=== PATIENT | female | born 1960 | race African-American/Black ===

== ENCOUNTER → 2016-03-19 | Outpatient (CLI) | payer OTHER, BC | LOC: MC.RAD 14:53 | DX: Z12.31 Encounter for screening mammogram for malignant neoplasm of breast (principal) ==

== ENCOUNTER 2016-05-09 15:00 | Outpatient (RCR) | payer OTHER, BC | END 2016-05-15 10:31 | disposition home or self-care (01) | LOC: MKS.ESL.PT 15:00 | DX: M25.561 Pain in right knee (principal) | CPT/HCPCS: G8978-GP; G8979-GP; G8980-GP ==

== ENCOUNTER → 2017-05-01 | Outpatient (CLI) | payer OTHER | LOC: MC.RAD 04-03 14:20 | DX: Z12.31 Encounter for screening mammogram for malignant neoplasm of breast (principal) ==

== ENCOUNTER → 2018-06-08 | Outpatient (CLI) | payer OTHER | LOC: MC.RAD 16:39 | DX: Z12.31 Encounter for screening mammogram for malignant neoplasm of breast (principal) ==

== ENCOUNTER 2018-11-21 08:30 | Inpatient (IN) | payer OTHER ==
[~2018-11-21] VITALS: Ht 167.6 cm; Wt 90.1 kg
[2018-11-21 09:27] LABS: BASO % 0.3 % (0.0-2.0); EOS % 0.3 % (0-4.0); GRAN % 75.4 % (42.2-75.2); HEMATOCRIT 44.1 % (37.0-47.0); HEMOGLOBIN 14.7 g/dl (12.5-16.0); LYMPH # 1.8 (1.2-3.4); MEAN CELL VOLUME 92 fl (80.0-100.0); MEAN CORPUSCULAR HEMOGLOBIN 31 pg (27.0-31.0); MEAN CORPUSCULAR HGB CONC 33 g/dl (33.0-37.0); MEAN PLATELET VOLUME 9.6 fl (7.4-10.4); MONO # 0.5 (0.1-0.6); MONO % 4.8 % (1.7-9.3); PLATELET COUNT 267 K/mm3 (130-400); REDCELL DISTRIBUTION WIDTH-CV 11.9 % (11.5-14.5)
[2018-11-21 09:36] LABS: ALANINE AMINOTRANSFERASE < 6 U/L (9-52); ALBUMIN 4.6 gm/dL (3.5-5.0); ALKALINE PHOSPHATASE 115 U/L (50-136); ANION GAP 12 mmol/L (7-16); AST,SGOT 22 U/L (15-37); BILIRUBIN,TOTAL 0.5 mg/dL (0.0-1.0); BLOOD UREA NITROGEN 13 mg/dL (7-17); C-REACTIVE PROTEIN 1.1 mg/dL (0.0-0.9); CALCIUM 10.1 mg/dL (8.4-10.2); CARBON DIOXIDE 25 mmol/L (22-30); CHLORIDE 105 mmol/L (98-107); CREATININE, serum 0.69 (0.52-1.25); GLUCOSE 148 mg/dL (74-106); LIPASE 762 U/L (23-300); POTASSIUM 4.1 mmol/L (3.4-5.0); SODIUM 142 mmol/L (137-145); TOTAL PROTEIN 8.5 gm/dL (6.4-8.2)
[2018-11-21 10:16] LABS: COLLECTION METHOD CLEAN CATCH
[2018-11-21 10:27] LABS: MUCOUS Present /lpf; PH 7 (5-8); SQUAMOUS EPITHELIAL 0-2 /hpf; URINE APPEARANCE Clear; URINE BACTERIA None Seen /hpf; URINE BILIRUBIN Negative (NEGATIVE); URINE BLOOD Negative (NEGATIVE); URINE COLOR Yellow; URINE GLUCOSE Negative (NEGATIVE); URINE KETONE Negative (NEGATIVE); URINE LEUKOCYTE ESTERASE Negative (NEGATIVE); URINE NITRATE Negative (NEGATIVE); URINE PROTEIN(semi-quant) Negative (NEGATIVE); URINE RBC 0-2 /hpf; URINE UROBILINOGEN Negative (NEGATIVE)
--- NOTE | 2018-11-21 12:00 | NUR ---
Admitted from ED with SBO. NPO. Denies abdominal pain or nausea. IV fluids infusing. Family at bedside.
[2018-11-21 12:32] VITALS: BP 174/88; PULSE 57; TEMP 98.1
[2018-11-21 13:10] VITALS: BP 152/78; PULSE 55
[2018-11-21 16:00] VITALS: BP 171/91; PULSE 59; TEMP 98.2
--- NOTE | 2018-11-21 17:30 | NUR ---
Medicated with Dilaudid for c/o abdominal pain returning. Stated pain relieved after med. Has ambulated in halls with standby assist.
[2018-11-21 19:48] VITALS: BP 178/79; PULSE 50; TEMP 98.4
--- NOTE | 2018-11-21 22:41 | NUR ---
Pt assessment completed. Patient does state she is in some pain but does not want any pain meds at this time. Patient ambulated in [place] with daughter and tolerated well. Patient has LR running in right hand with no issues. Call light within reach, will continue to monitor
[2018-11-21 23:55] VITALS: BP 143/77; PULSE 50; TEMP 98.7
[2018-11-22 04:00] VITALS: BP 147/71; PULSE 50; TEMP 98.7
--- NOTE | 2018-11-22 04:56 | NUR ---
Patient doing well, sleeping in room. Call light within reach, will continue to monitor
[2018-11-22 06:06] LABS: BASO % 0.3 % (0.0-2.0); EOS # 0.2 (0.0-0.7); EOS % 2.6 % (0-4.0); GRAN # 4.1 (1.4-6.5); GRAN % 58.7 % (42.2-75.2); HEMATOCRIT 38.1 % (37.0-47.0); LYMPH # 2.2 (1.2-3.4); LYMPH % 31.9 % (20.0-51.0); MEAN CELL VOLUME 95 fl (80.0-100.0); MEAN CORPUSCULAR HEMOGLOBIN 31 pg (27.0-31.0); MEAN CORPUSCULAR HGB CONC 33 g/dl (33.0-37.0); MEAN PLATELET VOLUME 9.6 fl (7.4-10.4); MONO # 0.5 (0.1-0.6); MONO % 6.4 % (1.7-9.3); PLATELET COUNT 217 K/mm3 (130-400); RED BLOOD COUNT 4.02 M/mm3 (4.10-5.30); REDCELL DISTRIBUTION WIDTH-CV 11.9 % (11.5-14.5)
[2018-11-22 06:07] LABS: HEMOGLOBIN 12.6 g/dl (12.5-16.0)
[2018-11-22 06:22] LABS: ALBUMIN 3.8 gm/dL (3.5-5.0); BILIRUBIN,TOTAL 0.8 mg/dL (0.0-1.0); CALCIUM 9.1 mg/dL (8.4-10.2); CREATININE, serum 0.7 (0.52-1.25); POTASSIUM 3.6 mmol/L (3.4-5.0); TOTAL PROTEIN 6.9 gm/dL (6.4-8.2)
[2018-11-22 09:30] VITALS: BP 156/69; PULSE 49; TEMP 97.9
--- NOTE | 2018-11-22 10:40 | NUR ---
DR.WOLFE PLUNKETT
[2018-11-22 11:34] VITALS: BP 135/82; PULSE 50; TEMP 98.2
[2018-11-22 15:59] VITALS: BP 137/79; PULSE 51; TEMP 97.9
--- NOTE | 2018-11-22 17:05 | NUR ---
PATIENT CALLED OUT AND REPORTS SHE PASSED FLATUS FOR THE FIRST TIME.
[2018-11-22 19:32] VITALS: BP 141/77; PULSE 53; TEMP 99.3
[2018-11-23 01:24] VITALS: BP 159/76; PULSE 54; TEMP 98.1
--- NOTE | 2018-11-23 01:40 | NUR ---
PATIENT DOING WELL TONIGHT. REPORTS SHE HAS NOT PASSED ANY MORE FLATUS SINCE DAY SHIFT. BOWEL SOUNDS HYPOACTIVE. DENIES PAIN OR NEED FOR PAIN MEDICATION. WALKED A FEW LAPS AROUND UNIT BEFORE BED. NO FURTHER NEEDS AT THIS TIME. WILL CONTINUE TO MONITOR.
[2018-11-23 04:33] VITALS: BP 142/62; PULSE 63; TEMP 98.7
[2018-11-23 06:12] LABS: BASO % 0.5 % (0.0-2.0); EOS # 0.2 (0.0-0.7); EOS % 2.3 % (0-4.0); GRAN # 3.8 (1.4-6.5); GRAN % 58.1 % (42.2-75.2); HEMATOCRIT 39.1 % (37.0-47.0); LYMPH # 2.1 (1.2-3.4); LYMPH % 31.5 % (20.0-51.0); MEAN CELL VOLUME 94 fl (80.0-100.0); MEAN CORPUSCULAR HEMOGLOBIN 31 pg (27.0-31.0); MEAN CORPUSCULAR HGB CONC 33 g/dl (33.0-37.0); MEAN PLATELET VOLUME 9.8 fl (7.4-10.4); MONO # 0.5 (0.1-0.6); MONO % 7.4 % (1.7-9.3); PLATELET COUNT 218 K/mm3 (130-400); RED BLOOD COUNT 4.18 M/mm3 (4.10-5.30); REDCELL DISTRIBUTION WIDTH-CV 11.7 % (11.5-14.5)
[2018-11-23 06:16] LABS: INR 1.1 (0.8-3.0)
[2018-11-23 06:24] LABS: BILIRUBIN,TOTAL 0.9 mg/dL (0.0-1.0); CALCIUM 9.4 mg/dL (8.4-10.2); CREATININE, serum 0.75 (0.52-1.25); POTASSIUM 3.6 mmol/L (3.4-5.0); TOTAL PROTEIN 7.3 gm/dL (6.4-8.2)
[2018-11-23 09:00] VITALS: BP 163/84; PULSE 53; TEMP 98.2
--- NOTE | 2018-11-23 09:04 | NUR ---
Initial visit; Patient thanked Associate Professor Of Communication for stopping and offering God's blessings. Patient has notified her Cargo Service Supervisor of her hospitalization.
--- NOTE | 2018-11-23 10:00 | NUR ---
Patient alert and oriented, answers questions appropriately. See assessment. Abdomen soft, non tender, non distended. Bowel sounds active x4 quads. +Flatus. No c/o at this time.
[2018-11-23 12:32] VITALS: BP 148/76; PULSE 59; TEMP 98.7
--- NOTE | 2018-11-23 16:05 | NUR ---
KRISTYN met with the patient to discuss a discharge plan. The patient lives in [place] with her children. The patient does not use DME and reports independence with ADLs. The patient receives medical care at the [facility] and receives medications via mail from the [place] and [facility], as needed. The patient does not have advanced directives in the EMR but has them completed and designate her daughter Ebony. The patient plans to return home upon discharge with on of her daughters providing transportation. There are no additional needs at this time.
[2018-11-23 17:33] VITALS: BP 137/79; PULSE 58; TEMP 98.5
[2018-11-23 20:00] VITALS: BP 137/72; PULSE 69; TEMP 98.3
[2018-11-24] VITALS: BP 136/73; PULSE 59; TEMP 98.5
--- NOTE | 2018-11-24 01:47 | NUR ---
PATIENT DOING WELL TONIGHT. DENIES PAIN. SEE ASSESMENT. STATES SHE HAS NOT PASSED ANY MORE GAS SINCE SHIFT CHANGE. ABDOMEN SOFT AND NONTENDER, BOWEL SOUNDS HYPOACTIVE. X4 LAP SITES CD&I. PATIENT TOLERATING LOW FIBER DIET SO FAR. HAS NOT PASSED BM THIS SHIFT. NO FURTHER NEEDS AT THIS TIME.
[2018-11-24 04:00] VITALS: BP 135/76; PULSE 61; TEMP 98.1
[2018-11-24 07:11] VITALS: BP 138/68; PULSE 62; TEMP 98.6
--- NOTE | 2018-11-24 09:30 | NUR ---
Patient alert and oriented, answers questions appropriately. See assessment. Abdomen soft, non tender, non distended. Bowel sounds active x4 quads. +Flatus. +BM. No c/o pain or discomfort.
--- NOTE | 2018-11-24 11:05 | NUR ---
Follow-up; inquired as to how patient was this morning. Joceline thanked and stated she is doing much better.
--- NOTE | 2018-11-24 11:32 | NUR ---
Discharge instructions reviewed with patient and daughter, verbalized understanding. Discharged ambulatory to auto/home with family at 1130.
== END 2018-11-24 11:30 | disposition home or self-care (01) | DRG 390 ==
LOC: COL.ER 08:30 → SURG 10:49
PROVIDERS: Physician Assistant; ADMIT Surgery
DX: K56.609 Unspecified intestinal obstruction, unspecified as to partial versus complete obstruction (principal); Z90.710 Acquired absence of both cervix and uterus; Z28.21 Immunization not carried out because of patient refusal
CPT/HCPCS: G0378; J1170; J2270; J2405; J3010; J7030; J7120; Q9967

== ENCOUNTER → 2019-08-09 | Outpatient (CLI) | payer OTHER | LOC: MC.RAD 16:45 | DX: Z12.31 Encounter for screening mammogram for malignant neoplasm of breast (principal) ==

== ENCOUNTER → 2020-10-09 | Outpatient (CLI) | payer OTHER | LOC: MC.RAD 15:43 | DX: Z12.31 Encounter for screening mammogram for malignant neoplasm of breast (principal) ==

== ENCOUNTER 2022-11-21 11:15 | Outpatient (RCR) | payer OTHER | END 2022-11-22 | disposition home or self-care (01) | LOC: WSPT | DX: M54.2 Cervicalgia (principal) ==

== ENCOUNTER → 2023-10-15 | Outpatient (CLI) | payer OTHER | LOC: MC.RAD 14:11 | DX: Z12.31 Encounter for screening mammogram for malignant neoplasm of breast (principal) ==